=== PATIENT | female | born 1965 | race Caucasian/White ===

== ENCOUNTER 2020-07-30 12:01 | Day surgery (SDC) | payer MEDICAID ==
[2020-07-28 15:50] LABS: COVID AG,FIA SOURCE NASOPHARYNGEAL
[~2020-07-30] VITALS: Ht 165.1 cm; Wt 54.5 kg
[~2020-07-30 12:01] MED LIST: SODIUM CHLORIDE 0.9% 1,000 ML IV ONE; SODIUM CHLORIDE 0.9% 1,000 ML ONE
[2020-07-30] MEDS ORDERED: PROPOFOL 1% 20 ML VIAL IVP ONE (12:02)
[2020-07-30] MEDS ORDERED: LIDOCAINE/PF 2% 5 ML VIAL IM ONE (12:02)
[2020-07-30 12:40] LABS: GLUCOMETER DEV NAME(LOC) SDS.; GLUCOSE,POINT OF CARE 157 MG/DL (70-110)
[2020-07-30] MEDS ORDERED: OXYGEN THERAPY IH SCH (20:00)
== END 2020-07-30 15:45 | disposition home or self-care (01) ==
LOC: SURGERY 12:01
PROVIDERS: ATTEND Specialist
DX: K62.5 Hemorrhage of anus and rectum (principal); K62.89 Other specified diseases of anus and rectum; K64.9 Unspecified hemorrhoids; Z20.822 Contact with and (suspected) exposure to COVID-19; E11.9 Type 2 diabetes mellitus without complications; I10 Essential (primary) hypertension; E78.00 Pure hypercholesterolemia, unspecified; Z85.42 Personal history of malignant neoplasm of other parts of uterus; Z90.710 Acquired absence of both cervix and uterus; Z79.84 Long term (current) use of oral hypoglycemic drugs; Z79.899 Other long term (current) drug therapy; Z82.49 Family history of ischemic heart disease and other diseases of the circulatory system; Z83.3 Family history of diabetes mellitus
CPT/HCPCS: 45378; 82962; 87426; C9803; J2704; J3490; J7030